=== PATIENT | female | born 1970 | race Caucasian/White ===

== ENCOUNTER → 2016-05-30 | Outpatient (CLI) | payer BC ==
--- NOTE | 2016-05-31 10:01 | MAM ---
EXAM DESCRIPTION: MAMMO BREAST SCREENING BILATERAL CAD, images were reviewed with CAD technology, R2 computer-aided detection. CLINICAL HISTORY: [facility]. COMPARISON: 2011. FINDINGS: Routine views are obtained. Scattered glandular pattern, stable. No dominant mass, architectural distortion or clustered microcalcification.. IMPRESSION: Benign exam. BIRAD CATEGORY: 2 BENIGN RECOMMENDATIONS: FOLLOW-UP: Routine screening mammogram in one year. According to the [employer], yearly mammograms are recommended starting at age 40 and continuing as long as a woman is in good health. Any breast change noted on a breast self-exam should be reported promptly to the patient's healthcare provider. Breast MRI is recommended for women with an approximately 20-25% or greater lifetime risk of breast cancer, including women with a strong family history of breast or ovarian cancer and women who have been treated for Hodgkin's disease. Electronically signed by: Natacha Brown 05/31/2016 09:58
== END ==
LOC: MAMMO 13:39
DX: Z12.31 Encounter for screening mammogram for malignant neoplasm of breast (principal)
CPT/HCPCS: 77052; G0202

== ENCOUNTER → 2016-06-06 | Outpatient (CLI) | payer BC | LOC: GMA 19:24 | PROVIDERS: ATTEND Nurse Practitioner Acute Care | DX: N39.0 Urinary tract infection, site not specified (principal) ==

== ENCOUNTER → 2017-02-07 | Outpatient (CLI) | payer BC, SELFPAY ==
--- NOTE | 2017-02-08 15:50 | CT ---
EXAM DESCRIPTION: CT ABDOMEN AND PELVIS WITHOUT AND WITH CONTRAST CLINICAL HISTORY: DIVERTICULITIS COMPARISON: None Available. TECHNIQUE: CT of the abdomen and pelvis are performed prior to and during IV bolus administration of ionic contrast. Oral contrast media is administered as well. This exam was performed according to our departmental dose-optimization program, which includes automated exposure control, adjustment of the mA and/or kV according to patient size and/or use of iterative reconstruction technique. FINDINGS: The lung bases are essentially clear. The upper abdomen on noncontrast and contrast enhanced examination demonstrates a normal-appearing liver and gallbladder and biliary ductal system. The pancreas normally enhances without cystic or solid mass and a small normal spleen is noted. The adrenal glands are normal in cortical enhancement of the kidneys demonstrate no obstruction or cyst or mass. Noncontrast imaging demonstrates no evidence of gallstones or renal calculi. The retroperitoneum including the aorta and vena cava and root of the mesentery is unremarkable. At and just below the level of the left iliac crest there is localized inflammation of the colon at the junction of the descending and sigmoid colon with bowel wall thickening and pericolic inflammation and milder colonic diverticulosis and a pattern consistent with early or mild diverticulitis. The distal descending colon and rectum are unremarkable. No evidence of bowel obstruction is seen. And no right lower quadrant inflammatory process is noted. An anteverted uterus in the midline a normal-appearing bladder is evident without adnexal masses. No abdominal or pelvic ascites is seen. Mild degenerative changes in the lumbar spine are noted. The anterior abdominal wall appears normal. IMPRESSION: 1. Left colonic diverticulosis at the junction of the descending and sigmoid colon with mild changes of diverticulitis with bowel wall thickening and pericolic inflammation but without drainable abscess or large phlegmon. No free air or perforation seen. 2. Remainder the abdomen and pelvic CT is essentially normal. 3. No abnormal fluid collections within the pelvis or right lower quadrant seen. 4. Mild degenerative changes of the lumbar spine. Electronically signed by: Carlyle Escobar MD 02/08/2017 3:49 PM CDT
== END | disposition home or self-care (01) ==
LOC: LAB.O 13:15
PROVIDERS: ATTEND Nurse Practitioner Family
DX: K57.92 Diverticulitis of intestine, part unspecified, without perforation or abscess without bleeding (principal)

== ENCOUNTER → 2018-04-24 | Outpatient (CLI) | payer BC, SELFPAY ==
--- NOTE | 2018-04-25 16:15 | MAM ---
EXAM DESCRIPTION: 3D Screening BILATERAL : Digital Mammography. CLINICAL HISTORY: 47 years Female SCREEN . No complaints or personal history of breast cancer. Remote family history of breast cancer. Childbirth. Postmenopausal 9 years. Currently on HRT. Lifetime risk of developing breast cancer (Tyrer-Cuzick model)(%): 7.5. COMPARISON: 2-D digital screening bilateral mammography 05/30/2016. TECHNIQUE: Bilateral CC and MLO projection full-field images, digital tomosynthesis mammographic technique. Bilateral digital 2-D full-field MLO images. CAD not available for tomosynthesis or 2-D images. FINDINGS: The breast parenchymal density pattern is: Heterogeneously dense breast tissue, which may obscure small masses. No skin thickening or nipple retraction. Bilateral solitary microcalcifications. Bilateral axillary lymph nodes. No new focal, stellate mass or density, focal asymmetry , and no suspicious microcalcifications bilaterally. Stable mammograms compared to prior study. Taking into account, differences in mammographic technique. IMPRESSION: Benign exam. BIRAD CATEGORY: 2 BENIGN FINDINGS. RECOMMENDATIONS: FOLLOW UP: Routine digital bilateral mammographic screening, one year interval from April 2018. Written communication explaining the IMPRESSION and follow-up, will be mailed to the patient and referring health care provider. According to the [employer], yearly mammograms are recommended starting at age 40 and continuing as long as a woman is in good health. Any breast change noted on a breast self-exam should be reported promptly to the patient's healthcare provider. Breast MRI is recommended for women with an approximately 20-25% or greater lifetime risk of breast cancer, including women with a strong family history of breast or ovarian cancer and women who have been treated for Hodgkin's disease. A negative mammographic report should not delay tissue diagnosis in patients with significant clinical history or physical findings. Extremely dense breast tissue limits the sensitivity of digital mammography. Electronically signed by: Ron Acosta MD 04/25/2018 4:14 PM [facility]
== END ==
LOC: MAMMO 11:36
PROVIDERS: ATTEND Obstetrics & Gynecology
DX: Z12.31 Encounter for screening mammogram for malignant neoplasm of breast (principal)